=== PATIENT | female | born 1940 | race Hispanic/Latino ===

== ENCOUNTER 2020-12-15 12:33 | Inpatient (IN) | payer MEDICARE ==
[2020-12-15] VITALS (8 sets, daily range): BP systolic 131–168; BP diastolic 57–81
[~2020-12-15] VITALS: Ht 144.8 cm; Wt 53.5 kg
[2020-12-15 14:51] LABS: BASOPHILS % (AUTO) 0.6 % (0.0-5.0); EOSINOPHILS % (AUTO) 0.5 % (0.0-8.0); HEMATOCRIT 34.5 % (36-48); LYMPHOCYTES % (AUTO) 12.8 % (21.0-51.0); MEAN CORPUSCULAR HEMOGLOBIN 31.4 pg (27.0-33.0); MEAN CORPUSCULAR HGB CONC 32.2 g/dL (32.0-36.0); MEAN CORPUSCULAR VOLUME 97.7 fL (79-99); MONOCYTES % (AUTO) 5.8 % (3.0-13.0); NEUTROPHILS % (AUTO) 79.9 % (40.0-77.0); PLATELET COUNT (AUTO) 219 K/uL (130-400); RED BLOOD CELL COUNT(AUTO) 3.53 MIL/uL (4.00-5.50); RED CELL DISTRIBUTION WIDTH 14.3 % (11.0-15.5); WHITE BLOOD COUNT (AUTO) 10.3 K/uL (4.8-10.8)
[2020-12-15 14:58] LABS: APPEARANCE,URINE Clear (CLEAR); BILIRUBIN,URINE Negative (NEGATIVE); COLOR,URINE Yellow (YELLOW); GLUCOSE, URINE (UA) Negative (NEGATIVE); KETONES,URINE 15 mg/dL (NEGATIVE); LEUKOCYTE ESTERASE ,URINE Negative (NEGATIVE); NITRATE,URINE Negative (NEGATIVE); OCCULT BLOOD,URINE Nonhemolyzed Trace (NEGATIVE); PH,URINE 8.5 (5.0-8.0); PROTEIN,URINE Negative (NEGATIVE)
[2020-12-15] MEDS ORDERED: 0.9%NACL 1000ML 0 ML IV ONE (15:00)
[2020-12-15] MEDS ORDERED: ONDANSETRON 4MG INJ IVP ONE (15:00)
[2020-12-15 15:27] LABS: BACTERIA,URINE Rare /HPF (None Seen); RBC,URINE 0-1 /HPF (0-1); SQUAMOUS EPITHELIAL CELL,UR Rare /HPF (0-2)
[2020-12-15 15:48] LABS: CARBON DIOXIDE 32 mmol/L (21-32); CHLORIDE 107 mmol/L (101-111); CREATININE 0.9 mg/dL (0.5-1.5); GLOMERULAR FILTR. RATE CALC 64 mL/min (>60); GLUCOSE,RANDOM 100 mg/dL (70-105); SODIUM SERUM 145 mmol/L (136-145); UREA NITROGEN, BLOOD 16 mg/dL (7-18)
[2020-12-15 15:52] LABS: ALANINE AMINOTRANSFERASE 18 U/L (12-78); ALBUMIN 3.5 g/dL (3.5-5.0); ASPARTATE AMINOTRANSFERASE 18 U/L (10-37); BILIRUBIN,TOTAL 0.8 mg/dL (0.2-1.0); TOTAL PROTEIN, SERUM 6.6 g/dL (6.0-8.3)
[2020-12-15 15:58] LABS: LIPASE < 50 U/L (114-286)
[2020-12-15] MEDS ORDERED: ONDANSETRON 4MG INJ IV PRN (16:30)
[2020-12-15] MEDS ORDERED: LACTULOSE 20 GM/30 ML UDCUP PO PRN (16:30)
[2020-12-15] MEDS ORDERED: ACETAMINOPHEN 325 MG TAB PO PRN ×2 (16:30)
[2020-12-15] MEDS: 0.9%NACL 1000ML 1,000 ML IV SCH (16:37)
[2020-12-15] MEDS ORDERED: ONDA4TAB4 PO (22:00)
[2020-12-15] MEDS ORDERED: LOSA25TA41 PO (22:00)
[2020-12-15] MEDS ORDERED: MIRT-22 PO (22:00)
[2020-12-15] MEDS ORDERED: MELO15TA12 PO (22:00)
[2020-12-15] MEDS ORDERED: BACL10TA PO (22:00)
[2020-12-15] MEDS ORDERED: OMEP20TA25 PO (22:00)
[2020-12-15] MEDS ORDERED: HYDR-4060 PO (22:00)
[2020-12-16] VITALS: BP 166/76
[2020-12-16] MEDS: MORPHINE 2 MG SYG IV PRN (00:14)
[2020-12-16 04:17] VITALS: BP 149/74
[2020-12-16 04:40] LABS: BASOPHILS % (AUTO) 0.5 % (0.0-5.0); EOSINOPHILS % (AUTO) 1.6 % (0.0-8.0); LYMPHOCYTES % (AUTO) 27.4 % (21.0-51.0); MEAN CORPUSCULAR HEMOGLOBIN 31.4 pg (27.0-33.0); MEAN CORPUSCULAR HGB CONC 32.3 g/dL (32.0-36.0); MEAN CORPUSCULAR VOLUME 97.1 fL (79-99); MONOCYTES % (AUTO) 10.3 % (3.0-13.0); NEUTROPHILS % (AUTO) 59.7 % (40.0-77.0); PLATELET COUNT (AUTO) 194 K/uL (130-400); RED BLOOD CELL COUNT(AUTO) 3.09 MIL/uL (4.00-5.50); RED CELL DISTRIBUTION WIDTH 14.2 % (11.0-15.5); WHITE BLOOD COUNT (AUTO) 10.9 K/uL (4.8-10.8)
[2020-12-16 05:03] LABS: CREATININE 0.7 mg/dL (0.5-1.5); POTASSIUM 3.8 mmol/L (3.5-5.1)
[2020-12-16 08:00] VITALS: BP 159/65
[2020-12-16] MEDS ORDERED: PANTOPRAZOLE 40 MG/VIAL IVP SCH (09:00)
[2020-12-16] MEDS: 0.9%NACL 1000ML 1,000 ML IV SCH (09:46)
[2020-12-16] MEDS: ENOXAPARIN SODIUM 30 MG/0.3 ML SQ SCH (09:47)
[2020-12-16 12:00] VITALS: BP 139/61
[2020-12-16 16:00] VITALS: BP 154/67
[2020-12-16 21:23] VITALS: BP 145/68
[2020-12-17] VITALS: BP 129/61
[2020-12-17 04:00] VITALS: BP 152/66
[2020-12-17] MEDS: MORPHINE 2 MG SYG IV PRN (04:14)
[2020-12-17 08:00] VITALS: BP 152/48
[2020-12-17] MEDS: ENOXAPARIN SODIUM 30 MG/0.3 ML SQ SCH (08:57)
[2020-12-17] MEDS ORDERED: PANTOPRAZOLE 40 MG TAB DR PO SCH (09:00)
[2020-12-17 11:51] VITALS: BP 137/57
[2020-12-17 16:00] VITALS: BP 139/68
== END 2020-12-17 17:40 | disposition home or self-care (01) | DRG 390 ==
LOC: EDH 12:33 → OBSVTOIN 16:15 → EDHIP 16:15 → 3CH 21:37
PROVIDERS: ADMIT Hospitalist; ATTEND Hospitalist
PROC: 0D9670Z Drainage of Stomach with Drainage Device, Via Natural or Artificial Opening (ICD-10-PCS; principal; 2020-12-15)
DX: K56.609 Unspecified intestinal obstruction, unspecified as to partial versus complete obstruction (principal); N18.9 Chronic kidney disease, unspecified; E78.5 Hyperlipidemia, unspecified; I12.9 Hypertensive chronic kidney disease with stage 1 through stage 4 chronic kidney disease, or unspecified chronic kidney disease; F03.90 Unspecified dementia, unspecified severity, without behavioral disturbance, psychotic disturbance, mood disturbance, and anxiety; Z96.612 Presence of left artificial shoulder joint; Z96.652 Presence of left artificial knee joint
CPT/HCPCS: 36415; 71045; 74018; 74176; 80048; 80053; 81001; 83690; 84484; 85025; 93005; 93970; C9113; G0378; J1650; J2405; J7030